=== PATIENT | male | born 1935 | race African-American/Black ===

== ENCOUNTER 2018-11-20 00:24 | Inpatient (IN) | payer OTHER ==
[2018-11-20] VITALS (8 sets, daily range): BP systolic 131–177; BP diastolic 43–87
[~2018-11-20] VITALS: Ht 182.9 cm; Wt 60.1 kg
[~2018-11-20 00:24] MED LIST: ASPIR 8181 MG PO; AVODART0.5 MG PO; CARDIZEM LA300 M1 PO; DILTIAZEM ER300 M1 PO; DOXAZOSIN MESYLA8 MG PO; DUONEB 2.5-0.5 M3 ML INH; EXELON 9.5 MG9.5 MG TD; LEVAQUIN 500 M500 M2 PO; NAMENDA 10 MG T10 MG PO; NAMENDA XR28 MG PO; PROSCAR 5MG TABL5 MG PO; TYLENOL325 MG PO; ZOCOR 10 MG TAB10 MG PO
[2018-11-20 00:51] LABS: ABSOLUTE NEUTROPHILS 16.8 thou/uL (1.4-8.2); BASOPHILS 0.2 % (0.0-2.0); EOSINOPHILS 0.1 % (0.0-3.0); HEMATOCRIT 39.7 % (42.0-52.0); LYMPHOCYTES 7.8 % (24.0-44.0); MCH 30.5 pg (26.0-34.0); MCHC 32.7 g/dL (28.0-37.0); MCV 93.4 fL (80.0-100.0); MONOCYTES 6.2 % (1.0-8.0); PLATELET COUNT 224 thou/uL (150-400); POLYS 85.7 % (36.0-66.0); RBC 4.25 mil/uL (4.50-6.00); RDW 13.7 % (10.5-14.5); WBC 19.6 thou/uL (4.0-11.0)
[2018-11-20 00:54] LABS: BE(vivo) 0.7 mmol/L (-2 to +3); HCO3 24.9 mmol/L (22.0-26.0); PCO2 VENOUS 38.8 mmHg (41.0-51.0); PO2 VENOUS 77.1 mmHg (35.0-45.0)
[2018-11-20 00:56] LABS: CALCIUM 9.4 mg/dL (8.5-10.1); POTASSIUM 3.6 mmol/L (3.5-5.1)
[2018-11-20 01:05] LABS: ALBUMIN 2.9 g/dL (3.4-5.0); MAGNESIUM 2.4 mg/dL (1.8-2.4); TOTAL PROTEIN 7.7 g/dL (6.4-8.2); TROPONIN-I 0.17 ng/mL (<0.06)
--- NOTE | 2018-11-20 01:26 | NUR ---
pt is a code per daughter dpoa
[2018-11-20 01:48] LABS: DIRECT BILIRUBIN 0.9 mg/dL (<0.1-0.3)
[2018-11-20] MEDS ORDERED: FLOMAX0.4 MG PO (03:11)
[2018-11-20] MEDS ORDERED: TYLENOL EXTRA500 MG PO (03:13)
[2018-11-20] MEDS ORDERED: ZANTAC 150MG T150 MG PO (03:14)
[2018-11-20 07:10] LABS: TROPONIN-I 0.19 ng/mL (<0.06)
--- NOTE | 2018-11-20 09:08 | EKG ---
[address] [address] ELECTROCARDIOGRAM REPORT Name: KIRSTY CLARKSUKHI Room #: 351-P ADM IN M.R.#: [id number] Admission: 11/20/18 Attend Phys: Piero Greene MD Discharge: Date of : 33 Report #: [id number] THIS REPORT FOR: //name// [facility] ED Test Date: 2018-11-20 Test Time: 00:42:31 Pat Name: LEON CLARK Department: Room: [facility] Gender: M Catalog Specialist: [id number] : 1935 Requested By: Orion Thomas Order Number: [id number] MD: Jey Myrick Measurements Intervals [place] Rate: 84 P: 66 LA: 156 QRS: -46 QRSD: 73 T: 256 QT: 455 QTc: 538 Interpretive Statements Sinus rhythm Left anterior fascicular block Abnormal R-wave progression, early transition Borderline T abnormalities, diffuse leads Prolonged QT interval Compared to ECG 10/28/2015 17:35:56 Supraventricular tachycardia no longer present Electronically Signed On 11-20-2018 9:08:23 THERMODYNAMICIST by Jey Myrick [email or web address] <ELECTRONICALLY SIGNED> By: Jey Myrick MD, [facility] 11/20/18 0908 004 Jey Myrick MD, [facility] /EPI
[2018-11-20 12:40] LABS: URINE CLARITY CLOUDY; URINE COLOR YELLOW; URINE GLUCOSE-RANDOM* NEGATIVE (Negative); URINE PROTEIN (DIPSTICK) 2+ (Negative)
[2018-11-20 12:41] LABS: URINE BILIRUBIN NEGATIVE (Negative); URINE BLOOD 2+ (Negative); URINE KETONES NEGATIVE (Negative); URINE LEUKOCYTES-REFLEX 2+ (Negative); URINE NITRITE-REFLEX NEGATIVE (Negative)
[2018-11-20 12:46] LABS: BACTERIA-REFLEX >30 Many /HPF (None Seen); CASTS None Seen /LPF (None Seen); CRYSTALS None Seen /LPF (None Seen); SQUAMOUS None Seen /LPF (0-3); URINE RBC 3-10 Few /HPF (0-2); URINE WBC-REFLEX >25 Many /HPF (0-5)
--- NOTE | 2018-11-20 15:32 | NUR ---
ASSESSMENT: CM REVIEWED CHART AND MET WITH PATIENT AT THE BEDSIDE. PT IS ALERT AND UNABLE TO ANSWER QUESTIONS. CM REVIEWED MEDICAL RECORD. PT IS FROM [facility]. CM NOTIFIED LIASON AT [facility] OF PATIENTS ADMISSION AND FAXED UPDATED CLINICAL TO FACILITY. CM DISCUSSED WITH ATTENDING WHO STATES HE FEELS HOSPICE CARE MIGHT BE APPROPRIATE FOR PATIENT AND HE WAS GOING TO REACH OUT TO FAMILY. ATTENDING REPORTS SPEAKING WITH DAUGHTER WHO STATED SHE FEELS THAT THIS NON-VERBAL STATE IS ACUTE AND WOULD LIKE TO SEE HIM TRY TO RECOVER IN THE NEXT DAY OR TWO BEFORE CONSIDERING HOSPICE. VIKKI NOTIFIED LIASON AT [facility]. [facility] IS ABLE TO ACCEPT PATIENT BACK ONCE MEDICALLY STABLE AND IF HE IS ABLE TO DISCHARGE OVER THE WEEKEND CONTACT ANASTASIA AT [facility] AT [phone] AND SHE WILL PROVIDE FAX NUMBER WELL THE NUMBER FOR REPORT. IF DAUGHTER IS AGREEABLE WITH HOSPICE CM NOTIFIED LIASON AT [facility] AND THAT CAN BE ARRANGED AT FACILITY.
--- NOTE | 2018-11-20 20:20 | NUR ---
ASSUMED PT CARE AT 0700H. PT NON VERBAL. PT SLEEPING AT THE TIME. PER PREVIOUS REPORT PT IS FROM FACILITY AND PT HAS NOT BEEING EATING. PT HAD RESIDUE FOUND IN MOUTH. PT BEING CLEANED UP. CONSULTED PHYSICIAN FOR SWALLOW TEST BEFORE ADMINISTERING PO MEDS. SPEECH THERAPY STATED PT IS AT RISK FOR ASPIRATION. CONSULTED PHYSICIAN, PT IS TO BE NPO APART FROM MOUTH CARE. PT UA COLLECTED AND MARCOS LEFT IN PLACE PER PHYSICIAN ORDER. PT HAS SACRAL WOUND. CONSULT WOUND CARE. PT NON AMBULATORY, SCD'S ON, AND Q2 TURN IN PLACE. PT CURRENTLY ON IV ON R WRIST AND ON ABX. PT BEING ABLE TO RESPOND TO FAMILY AT BEDSIDE. PT CONTINUES TO BE MONITORED FOR SAFETY.
[2018-11-21 03:31] VITALS: BP 117/57
[2018-11-21 05:46] LABS: HEMOGLOBIN 11.2 gm/dL (14.0-18.0); MCH 31.1 pg (26.0-34.0); MCHC 32.8 g/dL (28.0-37.0); MCV 94.8 fL (80.0-100.0); RBC 3.59 mil/uL (4.50-6.00); RDW 14.6 % (10.5-14.5); WBC 11.1 thou/uL (4.0-11.0)
[2018-11-21 06:03] LABS: TROPONIN-I 0.44 ng/mL (<0.06)
[2018-11-21 06:07] LABS: ALBUMIN 2.3 g/dL (3.4-5.0); CALCIUM 8.1 mg/dL (8.5-10.1); CREATININE 1.5 mg/dL (0.7-1.3); POTASSIUM 3.3 mmol/L (3.5-5.1); TOTAL BILIRUBIN 2.6 mg/dL (<0.1-1.0); TOTAL PROTEIN 6.6 g/dL (6.4-8.2)
--- NOTE | 2018-11-21 07:44 | NUR ---
ASSUMED CARE AT 1900, ASSESSMENT COMPLETED. PT NONVERBAL, VERY STIFF WITH CARES AND TURNS, BECOMING MORE RIGID/TREMORING WITH ANY STIMULATION. NO SIGNS OF RESP DISTRESS, NO NAUSEA, NO STOOL OUTPUT OVERNIGHT. MAINTAINED STRICT NPO, GAVE ORAL CARE, Q2 TURNS. BP ELEVATED OVERNIGHT, OBTAINED ORDER TO START IV METOPROLOL SINCE PT CANNOT TAKE PO BP MEDS. LITTLE CHANGE IN BP AFTER GIVING MED, PT NOTED TO BE GROANING AND HAVING TREMORS, GAVE DOSE OF FENTANY; THIS HELPED RELAX PT AND HAD SIGNIFICANT CHANGE IN BP. GOOD MARCOS OUTPUT, 1000 ML OVERNIGHT DARK FER WITH LARGE AMOUNTS OF SEDIMENT. SR WITH HR 60-70 ON TELE. IV PULLED OUT DURING A TURN, NEW IV RESTARTED IN RIGHT FOREARM. AM LABS RESULTED A CRITICAL SODIUM, OBTAINED ORDERS TO CHANGE FLUIDS FROM NS TO D5. NO OTHER CONCERNS, SHIFT REPORT GIVEN AT 0700.
[2018-11-21 08:52] VITALS: BP 145/80
--- NOTE | 2018-11-21 12:58 | NUR ---
NONVERBAL. SOMNOLENT. MULTIPLE CONTACTS WITH FAMILY MEMBERS. FREQUENT CHECKS. CLOSE TO NURSES' STATION. FALL PRECAUTIONS IN PLACE. LABS, VS REVIEWED. SR PER TELE. WILL CONTINUE TO MONITOR.
[2018-11-21 16:37] VITALS: BP 138/71
[2018-11-21 19:59] VITALS: BP 145/69
--- NOTE | 2018-11-22 03:05 | NUR ---
PATIENT ASSESSED. IS ALERT X 1 SELF. IS NON-VERBAL SINCE ADMISSION. IS TURNED Q 2 HOURS. MARCOS INTACT WITH FER URINE. IS NPO. TELE- SHOWS NSR. DENIES ANY PAIN OR SOA. IV SITE HEALTHY. NO WOUNDS NOTED. LUNGS CTA-DISM. BEEN RUNNING A TEMP. WAS 101.3 ON SHIFT CHANGE AND RECHECKED AND WAS ABOUT THE SAME. TYLENOL SUPP GIVEN WITH GOOD RESULTS. DID COME DOWN TO 98.6 AX. TURNED Q 2 HOURS IS INCONT OF STOOL. ONLY HAD A SMALL STOOL. IS ON BEDREST. ON ROOM AIR. IV FLUIDS INFUSING WELL AT 125 CC.HOUR. CONT PLAN OF CARE.
[2018-11-22 04:37] VITALS: BP 164/84
[2018-11-22 05:34] LABS: ABSOLUTE NEUTROPHILS 8.4 thou/uL (1.4-8.2); BASOPHILS 0.5 % (0.0-2.0); EOSINOPHILS 2.2 % (0.0-3.0); HEMATOCRIT 34.5 % (42.0-52.0); HEMOGLOBIN 11.1 gm/dL (14.0-18.0); LYMPHOCYTES 20.7 % (24.0-44.0); MCH 30.9 pg (26.0-34.0); MCHC 32.2 g/dL (28.0-37.0); MCV 95.9 fL (80.0-100.0); MONOCYTES 10.3 % (1.0-8.0); PLATELET COUNT 163 thou/uL (150-400); POLYS 66.3 % (36.0-66.0); RDW 14.3 % (10.5-14.5); WBC 12.7 thou/uL (4.0-11.0)
[2018-11-22 07:17] VITALS: BP 153/80
[2018-11-22 11:10] VITALS: BP 132/62
[2018-11-22 16:40] VITALS: BP 154/79
--- NOTE | 2018-11-22 18:37 | NUR ---
ASSUMED PATIENT CARE AT 0700. NO CHANGE, Q2H TURN, NONE VERBLE.BLOOD TINGE URINE DUO TO PATIENT TRY TO PULL OUT MARCOS. NOT TOWARDS POC GOALS.
[2018-11-22 20:06] VITALS: BP 139/89
--- NOTE | 2018-11-23 02:15 | NUR ---
Assumed care of pt at 1900. Pt nonverbal and has dementia. Q2h turn. IVF and antibiotics infusing. Painter catheter in place. Fall precautions in place. WIll continue to monitor.
[2018-11-23 05:10] VITALS: BP 154/88
[2018-11-23 05:29] LABS: ABSOLUTE NEUTROPHILS 6.8 thou/uL (1.4-8.2); BASOPHILS 0.5 % (0.0-2.0); EOSINOPHILS 2.4 % (0.0-3.0); HEMATOCRIT 31.9 % (42.0-52.0); HEMOGLOBIN 10.7 gm/dL (14.0-18.0); LYMPHOCYTES 23.2 % (24.0-44.0); MCH 31.1 pg (26.0-34.0); MCHC 33.7 g/dL (28.0-37.0); MCV 92.4 fL (80.0-100.0); MONOCYTES 8.8 % (1.0-8.0); PLATELET COUNT 148 thou/uL (150-400); POLYS 65.1 % (36.0-66.0); RBC 3.45 mil/uL (4.50-6.00); RDW 13.7 % (10.5-14.5); WBC 10.5 thou/uL (4.0-11.0)
[2018-11-23 05:51] LABS: CALCIUM 7.7 mg/dL (8.5-10.1); CREATININE 1.3 mg/dL (0.7-1.3); MAGNESIUM 1.8 mg/dL (1.8-2.4); TOTAL BILIRUBIN 2.8 mg/dL (<0.1-1.0); TOTAL PROTEIN 6.2 g/dL (6.4-8.2)
[2018-11-23 05:55] LABS: POTASSIUM 2.7 mmol/L (3.5-5.1)
[2018-11-23 07:41] VITALS: BP 168/94; BP 169/102
[2018-11-23] MEDS ORDERED: CATAPRES-TTS 20.2 MG TRANSDERM (12:08)
--- NOTE | 2018-11-23 13:30 | NUR ---
PT UNRESPONSIVE AGAIN TODAY FOR OT EVALUATION. PHONE CALL TO DR. CORONADO WHO AGREED TO DISCONTINUE O.T. ORDERS DUE TO PT CONSISTENTLY NOT BEING ABLE TO PARTICIPATE IN O.T. EVALUATION DUE TO NON-RESPONSIVENESS.
--- NOTE | 2018-11-23 14:03 | NUR ---
PATIENT DC TODAY TO [facility], DP SENT TO ANASTASIA AT [facility] TODAY AT 3PM. FAMILY NOTIFIED, UNIT NOTIFIED, AMBULANCE FORM GIVEN TO UNIT FOR FRONT OF CHART COPY AND FOR CHART. DP SENT TO OUTREACH PROFESSIONAL FOR CC.
[2018-11-23 14:26] VITALS: BP 168/94
--- NOTE | 2018-11-23 14:47 | NUR ---
WOUND CONSULT: PT. WAS SEEN ON 11/20/[address] GARCIA AND MYSELF. PT. HAS A STABLE STAGE 2 PRESSURE ULCER TO HIS SACRUM. THERE ARE NO SIGNS OR SYMPTOMS OF INFECTION NOTED AT THIS TIME. RECOMMENDATIONS: WOUND CARE TO SACRUM: GENTLY CLEANSE AREA WITH WOUND CLEANSER OR NORMAL SALINE, APPLY MOISTURE BARRIER CREAM, LEAVE OPEN TO AIR, COMPLETE CARES DAILY AND PRN. TURN Q2 HOURS KEEP PT. OFF WOUNDS MUCH POSSIBLE PT. AND STAFF NURSE WERE INSTRUCTED ON PLAN OF CARE.
--- NOTE | 2018-11-23 15:19 | NUR ---
ASSUMED PT CARE AT 12:00. PT ARRIVED ON UNIT FROM 3W, WITH NO ISSUES OR CONCERNS. PT NONVERBAL FOR THE MOST PART WILL RESPOND BUT NOT APPROPRIATELY. PT D/C TO [facility]. ATTEMPTED TO CALL 2X WITH NO CONNECTION TO CORRECT NURSE FOR REPORT.
--- NOTE | 2018-11-23 16:08 | HC ---
[facility] [place] [address] CONSULTATION Name: LEON CLARK Room #: 455-P [facility] IN M.R.#: [id number] Admission: 11/20/18 Attend Phys: Piero Greene MD Discharge: 11/23/18 Date of : 34 Report #: [id number] THIS REPORT FOR: //name// CC: Johnna Greene DATE OF SERVICE: 11/20/2018 CHIEF COMPLAINT: Sacral pressure ulceration. HISTORY OF PRESENT ILLNESS: This is an 83-year-old male patient who was admitted to the hospital with hypernatremia and dehydration. He has had apparently low grade fever and diminished mental status. He is noted to have a sacral ulcer and I have been asked to see him in this regard. He is not able to answer any questions about himself at this time. PAST MEDICAL HISTORY: Positive for dementia, hypertension, hyperlipidemia and dysphagia. FAMILY HISTORY: Noncontributory. SOCIAL HISTORY: Unknown. ALLERGIES: None. MEDICATIONS: Include tamsulosin, Tylenol, Zantac, aspirin, DuoNeb, Levaquin, diltiazem, Zocor, doxazosin, Exelon, Proscar, Namenda. REVIEW OF SYSTEMS: Unobtainable due to acute mental status changes. PHYSICAL EXAMINATION: VITAL SIGNS: At this time include pulse 84, respiratory rate of 20, blood pressure 167/63, temperature 100.0. GENERAL: This is a chronically ill-appearing male patient who appears to be in no distress and has not been able to answer questions, briefly opens his eyes. HEENT: Head is normocephalic. NECK: Supple. LUNGS: Diminished. HEART: Regular rhythm. ABDOMEN: Soft. There is no tenderness noted. SKIN: Sacral region demonstrates what appears to be a very small stage 2 pressure ulceration of the sacral region with no tunneling, undermining or exposure of deep structures. EXTREMITIES: Lower extremities demonstrate no breakdown. NEUROLOGIC: The patient appears to be moving symmetrically. He is not oriented or able to answer questions. [address] [address] CONSULTATION Name: [facility] Room #: [address] [place] [address] IN M.R.#: [id number] Admission: 11/20/18 Attend Phys: Piero Greene MD Discharge: 11/23/18 Date of : 34 Report #: [id number] LABORATORY DATA: Sodium 165, potassium 3.6, chloride 128, CO2 of 27, BUN 59, creatinine 2.0, glucose 121. Albumin is 2.9. White blood cell count 19.6 with a hemoglobin of 13.0. CLINICAL IMPRESSION: 1. Stage 2 sacral pressure ulceration. 2. Acute mental status change. 3. Hypernatremia, likely secondary to dehydration. RECOMMENDATIONS: At this point in time, the patient will be placed on low air loss mattress. He will need q. 2 hour turning the position. Recommend zinc oxide based moisture barrier cream to the sacral region twice daily and as needed. He will need Prevalon boots for pressure prophylaxis of both heels. Recommend aggressive nutritional support and continue current medications. <ELECTRONICALLY SIGNED> By: Brendan Obrien MD 11/23/18 1608 1652 0527 Brendan Obrien MD /nt
== END 2018-11-23 15:19 | DRG 871 ==
LOC: ER 00:24 → 3W 01:25 → EROBS 01:25 → 3W 02:40 → 4W 11-23 12:20
PROVIDERS: Emergency Medicine; Nurse Practitioner Acute Care; ADMIT Internal Medicine
DX: A41.9 Sepsis, unspecified organism (principal); G92 Toxic encephalopathy; E43 Unspecified severe protein-calorie malnutrition; N17.9 Acute kidney failure, unspecified; E87.0 Hyperosmolality and hypernatremia; N39.0 Urinary tract infection, site not specified; Z68.1 Body mass index [BMI] 19.9 or less, adult; F03.90 Unspecified dementia, unspecified severity, without behavioral disturbance, psychotic disturbance, mood disturbance, and anxiety; I10 Essential (primary) hypertension; E78.5 Hyperlipidemia, unspecified; E86.0 Dehydration; L89.152 Pressure ulcer of sacral region, stage 2; N40.0 Benign prostatic hyperplasia without lower urinary tract symptoms; R13.10 Dysphagia, unspecified; Z66 Do not resuscitate; Z79.82 Long term (current) use of aspirin; Z79.899 Other long term (current) drug therapy; Z28.89 Immunization not carried out for other reason
CPT/HCPCS: 10879

== ENCOUNTER 2018-12-03 14:40 | Inpatient (IN) | payer OTHER ==
[~2018-12-03] VITALS: Ht 182.9 cm; Wt 59.9 kg
[~2018-12-03 14:40] MED LIST changes: +CATAPRES-TTS 20.2 MG TRANSDERM; +FLOMAX0.4 MG PO; +TYLENOL EXTRA500 MG PO; +ZANTAC 150MG T150 MG PO
[2018-12-03 16:31] VITALS: BP 161/65
--- NOTE | 2018-12-03 17:24 | NUR ---
PATIENT ARRIVED DIRECT ADMIT FROM [facility]. ALERT, NON VERBAL, PER FAMILY/[facility] RN PT HAS HX OF DEMENTIA. 2/2PULSES,, MARCOS FOR RETENTION, BM TODAY, LIFT DEVICE/SLIDE FOR TRANSFERS. ARRIVED WITH IV IN LEFT FORARM. WOUND COCCCYX. CONSENTS SIGNED. PER FAMILY PT IS HERE FOR A GTUBE PLACEMENT. ADDMISSION HISTORY AND ASSESMENT COMPLETED. FALL PRECAUTIONS IN PLACE. STAFF TO ANTICIPATE PT'S NEEDS, CANNOT DEMONSTRATE CALL LIGHT USE. RN FROM [facility] STATED PT ON PUREED DIET THICKENED LIQUIDS HOWEVER HIS INTAKE IS POOR. PHYSICAN NOTIFIED OF PT ARRIVAL.
[2018-12-03] MEDS ORDERED: MELATONIN1 MG PO (17:26)
[2018-12-03 18:24] LABS: HEMATOCRIT 35.2 % (42.0-52.0); HEMOGLOBIN 11.1 gm/dL (14.0-18.0); MCH 30.1 pg (26.0-34.0); MCHC 31.5 g/dL (28.0-37.0); MCV 95.8 fL (80.0-100.0); RBC 3.68 mil/uL (4.50-6.00); RDW 14.4 % (10.5-14.5); WBC 14.2 thou/uL (4.0-11.0)
[2018-12-03 18:33] LABS: CALCIUM 8.6 mg/dL (8.5-10.1); CREATININE 1.3 mg/dL (0.7-1.3); POTASSIUM 3.6 mmol/L (3.5-5.1)
[2018-12-03 18:38] LABS: APTT 27.1 Seconds (24.5-32.8); INR 1.2; PROTIME 12.6 Seconds (9.3-11.4)
[2018-12-03 18:39] LABS: ALBUMIN 2.2 g/dL (3.4-5.0); TOTAL BILIRUBIN 1.3 mg/dL (<0.1-1.0); TOTAL PROTEIN 7.5 g/dL (6.4-8.2)
[2018-12-03 19:35] VITALS: BP 155/70
[2018-12-04 03:29] VITALS: BP 161/49
[2018-12-04 07:58] LABS: URINE BILIRUBIN NEGATIVE (Negative); URINE BLOOD NEGATIVE (Negative); URINE CLARITY CLEAR; URINE COLOR YELLOW; URINE GLUCOSE-RANDOM* NEGATIVE (Negative); URINE KETONES 1+ (Negative); URINE LEUKOCYTES NEGATIVE (Negative); URINE NITRITE NEGATIVE (Negative); URINE PROTEIN (DIPSTICK) TRACE (Negative); URINE SPECIFIC GRAVITY >= 1.030 (1.005-1.035); URINE UROBILINOGEN 0.2 E.U./dl (0.2-1.0)
[2018-12-04 08:00] VITALS: BP 135/56
[2018-12-04 08:57] LABS: CALCIUM 8.7 mg/dL (8.5-10.1); CREATININE 1.2 mg/dL (0.7-1.3); POTASSIUM 3.8 mmol/L (3.5-5.1)
--- NOTE | 2018-12-04 12:01 | NUR ---
PT ADMITTED RELATED TO HYPERNATREMIA. CM REVIEWED CHART AND SPOKE WITH CARE TEAM. CM MET WITH PT AT BESIDE THIS DAY. PT'S SISTER'S WERE AT THE BEDSIDE. PT UNABLE TO COMPLETE ASSEMENT DUE TO ADVANCED DEMENTIA. THEY INDICATED THAT PT RESIDES AT [facility] AND THAT THEY ANTICPATE PT RETURNING THERE UPON DISHARGE. 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 CLINICALS SENT TO THE FACILITY. CM SPOKE WITH ANASTASIA AT THE FACILITY AND THEY ARE ABLE TO ACCEPT PT BACK ONCE MEDICALLY STABLE. PHYSICIAN INDICATED THAT PT WILL LIKELY REMAIN HOSPITALIZED OVER THE WEEKEND. CM TO FOLLOW INDICATED WITH DC PLANNING.
--- NOTE | 2018-12-04 12:44 | NUR ---
ORDER REC'D FOR OT. CAREGIVER IN ROOM AND STATES THAT PATIENT IS TOTAL CARE FOR ADLS AND FUNCTIONAL MOBILITY. PATIENT DID NOT RESPOND TO INSTRUCTIONS AND WILL BE DISCHARGED FROM SKILLED OT THERE ARE NO APPROPRIATE GOALS AT THIS TIME.
[2018-12-04 15:00] VITALS: BP 142/67
--- NOTE | 2018-12-04 19:39 | NUR ---
PATIENT ADMITTED FOR PLACEMENT OF PEG TUBE. PATIENT IS NONVERBAL. OPENS EYES AT TIMES, HOWEVER MOSTLY SLEEPS. TURNED Q2H. PEG TUBE PLACED THIS AFTERNOON. RETURNED TO FLOOR AT 1515. ABD DRESSING OVER PEG TUBE AND C/D/I. IVF'S STARTED ORDERED. ORAL CARE GIVEN. FALL PRECAUTIONS IN PLACE.
[2018-12-04 19:48] VITALS: BP 149/64
[2018-12-05 04:34] VITALS: BP 154/62
[2018-12-05 05:39] LABS: CALCIUM 8.2 mg/dL (8.5-10.1); CREATININE 1.1 mg/dL (0.7-1.3); POTASSIUM 3.2 mmol/L (3.5-5.1)
--- NOTE | 2018-12-05 05:49 | NUR ---
Alert, kept eyes closed and opened eyes to voice talk, unresponsive; vss, afebrile; PEG tube dressing dry and intact, no sign of pain; no n/v. will keep monitoring.
[2018-12-05 08:44] VITALS: BP 160/77
[2018-12-05 13:18] VITALS: BP 150/69
--- NOTE | 2018-12-05 14:57 | NUR ---
ASSUMED CARE AT 0700. ALERT AND AWAKE. NONVERBAL. PEG WAS EVAL BY AND TF AND MED RESTARTED THRU PEG, IVF D/C PER PT RECEIVING HYDRATION AND NUTIRITION THRU PEG. BEDSIDE EVAL RENDERED PER ST. PT IS STILL NPO. WOUND CARE RENDERED TO SACRAL WOUND. NO S/S ACUTE DISTRESS NOTED OR REPORTED AT THIS TIME. POTASSIUM WAS REPLACED PER PEG TUBE. WILL CONT TO MONITOR FOR ANY CHANGES IN CONDITION.
[2018-12-05 23:07] VITALS: BP 137/53
--- NOTE | 2018-12-05 23:47 | NUR ---
Pt. transfered to [address] [place] [address] supervisors direction. Pt. has been resting quietly in bed and is non-verbal. He has been turned and repositioned. Oral mouth care given. Tube feeding infusing without difficulty. Report given to Jamil AYALA.
--- NOTE | 2018-12-06 03:16 | NUR ---
Pt transferred from 4W approx 0000. Pt is nonverbal. Q2h turn. Continuous tube feeding through PEG tube. Meds administered through peg tube. visitor services coordinator consult ordered for sacral pressure wound. Fall precautions in place. Will continue to monitor.
[2018-12-06 04:30] VITALS: BP 123/67
[2018-12-06 05:55] LABS: ABSOLUTE NEUTROPHILS 7.5 thou/uL (1.4-8.2); BASOPHILS 0.6 % (0.0-2.0); EOSINOPHILS 1.3 % (0.0-3.0); HEMATOCRIT 33.2 % (42.0-52.0); HEMOGLOBIN 10.9 gm/dL (14.0-18.0); LYMPHOCYTES 18.4 % (24.0-44.0); MCH 29.7 pg (26.0-34.0); MCHC 32.8 g/dL (28.0-37.0); MONOCYTES 6.7 % (1.0-8.0); PLATELET COUNT 300 thou/uL (150-400); RBC 3.67 mil/uL (4.50-6.00); RDW 13.8 % (10.5-14.5); WBC 10.3 thou/uL (4.0-11.0)
[2018-12-06 06:02] LABS: MCV 90.7 fL (80.0-100.0)
[2018-12-06 06:05] LABS: CALCIUM 8.6 mg/dL (8.5-10.1); CREATININE 1.1 mg/dL (0.7-1.3); POTASSIUM 3.9 mmol/L (3.5-5.1)
--- NOTE | 2018-12-06 18:07 | NUR ---
AT 1700 MARCOS CATH CHANGED 16 FR WITH DARK YELLOW URINE RETURN . MINIMAL DISCOMFORT TO PATIENT. DRSG CHANGED TO SACRAL AREA. TUBE FEEDING INFUSING ORDERED.
[2018-12-06 20:20] VITALS: BP 137/52
--- NOTE | 2018-12-07 03:04 | NUR ---
Assumed care of pt at 1900. Q2h turn. Continuous tube feedings. Dressing on sacral wound clean and intact. Pt nonverbal. Painter catheter in place. Light and TV on in room per pt family request. Fall precautions in place. Will continue to monitor.
[2018-12-07 05:47] VITALS: BP 104/4
[2018-12-07 07:29] VITALS: BP 131/51
[2018-12-07 08:26] LABS: CALCIUM 8.4 mg/dL (8.5-10.1); CREATININE 1.2 mg/dL (0.7-1.3); POTASSIUM 3.9 mmol/L (3.5-5.1)
[2018-12-07] MEDS ORDERED: TYLENOL EXTRA500 MG PER TUBE (08:55)
[2018-12-07] MEDS ORDERED: PROSCAR 5MG TABL5 MG PER TUBE (08:55)
[2018-12-07] MEDS ORDERED: PEPCID20 MG PER TUBE (08:55)
[2018-12-07] MEDS ORDERED: ASPIR 8181 MG PER TUBE (08:55)
[2018-12-07] MEDS ORDERED: FLOMAX0.4 MG PER TUBE (08:55)
--- NOTE | 2018-12-07 10:32 | NUR ---
PT. DISCHARGING TODAY BACK TO [facility]. FAXED DC ORDERS/SUMMARY TO FACILITYJ SPOKE WITH ANASTASIA IN ADM SHE RECEIVED DC ORDERS. DC SET UP TRANSPORTATION VIA STRETCHER WITH [facility] TRIP #[id number] THEY WILL CHECKMAN PT. ANYWHERE BETWEEN NOW AND 1330. NOTIFIED DTR ( HILARY) OF DISCHARGE AND TIME OF TRANSPORT. UNIT NOTIFIED AND CHART COPY PER US. RN TO CALL REPORT TO [phone].
--- NOTE | 2018-12-07 11:54 | NUR ---
PT TRANSPORTED BACK TO [facility] BY CART AND FD, IV IN L HAND AND R FA REMOVED. REPORT CALLED TO LON AYALA. PEG TUBE STOPPED AND FLUSHED WITH 30ML WATER.
--- NOTE | 2018-12-11 10:09 | P ---
[facility] [place] [address] PROCEDURE REPORT Name: KIRSTY CLARKSUKHI Room #: 421-P [facility] IN M.R.#: [id number] Admission: 12/03/18 Attend Phys: Piero Greene MD Discharge: 12/07/18 Date of : 34 Report #: [id number] THIS REPORT FOR: //name// CC: Johnna Ruba Greene MD DATE OF SERVICE: 12/04/2018 PROCEDURE PERFORMED: Upper endoscopy with PEG tube placement. HISTORY OF PRESENT ILLNESS: The patient is an 83-year-old male with mental status changes, dysphagia, weight loss and unable to eat. Plan is for a PEG tube placement. PROCEDURE: The risks and benefits of the procedure were explained to the patient's daughters as the risks including but not limited to bleeding, perforation, the risk of sedation as well as potential risk for infection. They understood these risks and gave informed consent. Sedation was given using propofol per anesthesia. The patient was given 1 gram of Ancef prior to the procedure. Next, using a standard Olympus upper endoscope, the scope was placed in the patient's mouth and advanced under direct vision through the esophagus, stomach and into the second portion of the duodenum. The esophagus was normal throughout. The GE junction was normal. No evidence of stricture or esophagitis. Overall, the gastric mucosa was normal. The pylorus was normal and patent. The duodenal bulb, first and second portion were all normal. The scope was then brought back up into the patient's stomach and the stomach was fully insufflated with air. Good transillumination was noted through the anterior abdominal wall. This area was then marked and the skin was cleaned with chlorhexidine solution and a sterile drape was put in place. Next, Xylocaine was used as a local anesthetic. Next, a seeker needle was then advanced through the anterior abdominal wall into the gastric lumen under direct vision without difficulty. The needle was then removed. Next, a 1 cm transverse incision was made through the skin. Next, using a catheter needle, the needle was advanced through the mid portion of the incision again into the gastric lumen under direct vision. The needle was removed leaving the catheter in place. Next, a blue guidewire was inserted through the catheter. This was grasped with a snare through the endoscope and then brought back up through the patient's mouth. A 20-Setswana PEG tube was then secured to the blue guidewire and using a pull technique was put into position without difficulty. The scope was reintroduced into the patient's stomach. The PEG tube bumper was noted to be in good position in the mid body. The scope was then withdrawn. The PEG tube was then secured to the anterior abdominal wall. The procedure was then terminated. The patient tolerated the procedure well. [facility] [address] [place] [address] PROCEDURE REPORT Name: CLARK,NORSUKHI Room #: 421-P DIS IN M.R.#: [id number] Admission: 12/03/18 Attend Phys: Piero Greene MD Discharge: 12/07/18 Date of : 34 Report #: [id number] IMPRESSION: 1. Normal upper endoscopy. 2. Successful placement of PEG tube as described above. RECOMMENDATIONS: Okay to start using PEG tube later this evening. Thank you for allowing me to participate in his care. <ELECTRONICALLY SIGNED> By: Anish Kelly MD 12/11/18 1009 [id number] [id number] Anish Kelly MD /nt
== END 2018-12-07 11:43 | DRG 70 ==
LOC: 4W 14:40 → 4E 17:46
PROVIDERS: Hospitalist; ADMIT Internal Medicine
PROC: 0DH63UZ Insertion of Feeding Device into Stomach, Percutaneous Approach (ICD-10-PCS; principal; 2018-12-04)
DX: G93.40 Encephalopathy, unspecified (principal); E43 Unspecified severe protein-calorie malnutrition; N39.0 Urinary tract infection, site not specified; Z68.1 Body mass index [BMI] 19.9 or less, adult; E87.0 Hyperosmolality and hypernatremia; E86.0 Dehydration; R13.10 Dysphagia, unspecified; N40.0 Benign prostatic hyperplasia without lower urinary tract symptoms; G30.9 Alzheimer's disease, unspecified; E87.6 Hypokalemia; F02.80 Dementia in other diseases classified elsewhere, unspecified severity, without behavioral disturbance, psychotic disturbance, mood disturbance, and anxiety; R91.1 Solitary pulmonary nodule; E78.5 Hyperlipidemia, unspecified; I10 Essential (primary) hypertension; Z87.440 Personal history of urinary (tract) infections; Z87.01 Personal history of pneumonia (recurrent)
CPT/HCPCS: 10047; 10783; 62110; 62900; 70005

== ENCOUNTER 2018-12-09 08:01 | Inpatient (IN) | payer OTHER ==
[2018-12-09] VITALS (31 sets, daily range): BP systolic 91–153; BP diastolic 33–106
[~2018-12-09] VITALS: Ht 182.9 cm; Wt 98.5 kg
[~2018-12-09 08:01] MED LIST changes: +ASPIR 8181 MG PER TUBE; +FLOMAX0.4 MG PER TUBE; +MELATONIN1 MG PO; +PEPCID20 MG PER TUBE; +PROSCAR 5MG TABL5 MG PER TUBE; +TYLENOL EXTRA500 MG PER TUBE
[2018-12-09 08:17] LABS: BE(vivo) -3.8 mmol/L (-2 to +3); HCO3 17.5 mmol/L (22.0-26.0); PO2 67.3 mmHg (80.0-100.0); sO2 95.2 % (92.0-98.0)
[2018-12-09 09:04] LABS: HEMATOCRIT 38.7 % (42.0-52.0); HEMOGLOBIN 12.1 gm/dL (14.0-18.0); MCHC 31.2 g/dL (28.0-37.0); MCV 92.8 fL (80.0-100.0); PLATELET COUNT 344 thou/uL (150-400); RBC 4.17 mil/uL (4.50-6.00); RDW 14.3 % (10.5-14.5); WBC 14.1 thou/uL (4.0-11.0)
[2018-12-09 09:23] LABS: CALCIUM 8.8 mg/dL (8.5-10.1); POTASSIUM 4.9 mmol/L (3.5-5.1)
[2018-12-09 09:33] LABS: ABSOLUTE NEUTROPHILS 11.6 thou/uL (1.4-8.2); LARGE PLATELETS FEW; METAMYELOCYTES 3 %; PLATELET ESTIMATE NORMAL
[2018-12-09 10:33] LABS: URINE BLOOD 3+ (Negative); URINE CLARITY CLEAR; URINE COLOR YELLOW; URINE GLUCOSE-RANDOM* NEGATIVE (Negative); URINE KETONES TRACE (Negative); URINE NITRITE-REFLEX NEGATIVE (Negative); URINE PROTEIN (DIPSTICK) 1+ (Negative); URINE SPECIFIC GRAVITY 1.025 (1.005-1.035)
[2018-12-09 10:47] LABS: URINE LEUKOCYTES-REFLEX 1+ (Negative)
[2018-12-09 10:48] LABS: ICTOTEST (BILI CONFIRMATORY) Negative (Negative); URINE BILIRUBIN NEGATIVE (Negative)
[2018-12-09 11:44] LABS: BACTERIA-REFLEX >30 Many /HPF (None Seen); CASTS None Seen /LPF (None Seen); CRYSTALS None Seen /LPF (None Seen); SQUAMOUS None Seen /LPF (0-3); URINE RBC 3-10 Few /HPF (0-2); URINE WBC-REFLEX >25 Many /HPF (0-5)
[2018-12-09 11:46] LABS: YEAST-REFLEX Present (None Seen)
--- NOTE | 2018-12-09 12:42 | EKG ---
[address] [address] ELECTROCARDIOGRAM REPORT Name: LEON CLARK Room #: 170-8 ADM IN M.R.#: [id number] ������������������ Admission: 12/09/18 ������������������ Attend Phys: Joey Chen MD Discharge: ������������������ Date of : 34 Report #: [id number] ����������������������������������������������������������������� [id number] THIS REPORT FOR: //name// [facility] ED Test Date: 2018-12-09 Test Time: 08:16:40 Pat Name: LEON CLARK Department: Room: 170 Gender: M Barrel Charrer: SHAMAR : 1935 Requested By: Dk Bashir Order Number: [id number] MD: Vasiliy Burks Measurements Intervals [place] Rate: 126 P: -67 IN: 108 QRS: -37 QRSD: 64 T: 61 QT: 418 QTc: 606 Interpretive Statements Sinus or ectopic atrial tachycardia Left atrial enlargement Left axis deviation Abnormal R-wave progression, early transition Prolonged QT interval Compared to ECG 11/20/2018 00:42:31 Electronically Signed On 12-09-2018 12:42:33 HAIR SPECIALIST by Vasiliy Burks [email or web address] ��������������������������������������������� <ELECTRONICALLY SIGNED> ���������������������������������������� By: Vasiliy Burks MD ��������������������������������������������� 12/09/18 1242 5 5 Vasiliy Burks MD /EPI
--- NOTE | 2018-12-09 15:08 | NUR ---
VASCULAR ACCESS TEAM CONSULTED FOR PICC PLACEMENT. PT'S LABS,MEDS,HISTORY,ORDER AND CONSENT VERIFIED. PT WAS PREPPED AND DRAPED FOR MAX BARRIER PRECAUTIONS. THANG BASILIC WAS WIDELY PATENT WITH USG, 1% LIDOCAINE GIVEN SQ. 5FR TL POWER PICC TRIMMED TO 45CM INSERTED TO 1CM EXTERNAL. PICC SECURED STAT CXR OBTAINED.
--- NOTE | 2018-12-09 15:10 | NUR ---
CXR CONFIRMED PICC PLACEMENT NEAR CAJ, PICC RELEASED FOR IMMEDIATE USE PER PROTOCOL TO LIZ AYALA
[2018-12-09 15:17] LABS: BE(vivo) -6.1 mmol/L (-2 to +3); HCO3 17.4 mmol/L (22.0-26.0); PCO2 28.3 mmHg (35.0-45.0); PO2 101.2 mmHg (80.0-100.0); pH 7.407 (7.360-7.450); sO2 97.8 % (92.0-98.0)
[2018-12-09 17:37] LABS: CREATININE 1.7 mg/dL (0.7-1.3); MAGNESIUM 1.9 mg/dL (1.8-2.4); POTASSIUM 4.5 mmol/L (3.5-5.1)
[2018-12-09 18:03] LABS: BE(vivo) -4.6 mmol/L (-2 to +3); HCO3 18.8 mmol/L (22.0-26.0); PCO2 29.7 mmHg (35.0-45.0); PO2 390.3 mmHg (80.0-100.0); sO2 99.8 % (92.0-98.0)
--- NOTE | 2018-12-09 21:17 | NUR ---
PT ADMITTED TO ICU FROM ED FOR ASPIRATION PNEUMONIA. CONSULTS PLACED FOR DR. TOLLIVER (ID) AND DR. TODD (PULMONARY). PLACED ON MONITOR. TACHYCARDIC. BLOOD PRESSURES ADEQUATE. TACHYPENIC. ORDERS TO HAVE ABG'S DRAWN AND PLACE ON BIPAP. PT TOLERATING BIPAP WELL. TRIPLE LUMEN PICC PLACED. IV FLUIDS AND ABX INFUSING. ORDERS TO CALL DR. TODD IF PATIENT BECOMES HYPOTENSIVE. NOTED MINIMAL URINE OUTPUT. FLUSHED CATHETER, ONETIME DOSE OF LASIX GIVEN AND INCREASED FLUIDS TO 125 ML/HR. NOTED INCREASED OUTPUT, SEE I/O. MRSA SWAB SENT. SACRAL WOUOND, PICTURE IN PT CHART. CONSULT FOR WOUND CARE NURSE. MEPILEX DRESSING PLACED.
[2018-12-10] VITALS (53 sets, daily range): BP systolic 88–150; BP diastolic 29–117
--- NOTE | 2018-12-10 05:04 | NUR ---
PATIENT IS PROGRESSING SLOWLY IN HIS CARE PLAN. VITAL SIGNS STABLE WITH NURSE NOT PERCEIVING ANY PAIN OR NAUSEA ON BEHALF OF PATIENT. HE IS LETHARGIC AND HAD HISTORY OF DEMENTIA AND BEING NON VERBAL AT BASELINE. BREATHING STABLE ON BIPAP EVIDENCED BY CONTINUOUS MONITORING. URINARY OUTPUT AND BLOOD PRESSURE ABOVE PARAMETERS SET FORTH BY DR TODD FOR CALL AND POSSIBLE INTUBATION. PATIENT WAS REPOSITIONED WITH SKIN CARE PROVIDED. CONTINUE PLAN OF CARE.
[2018-12-10 05:18] LABS: BE(vivo) -4.3 mmol/L (-2 to +3); HCO3 19.4 mmol/L (22.0-26.0); PCO2 30.7 mmHg (35.0-45.0); PO2 181.1 mmHg (80.0-100.0); pH 7.418 (7.360-7.450); sO2 99.3 % (92.0-98.0)
[2018-12-10 06:34] LABS: HEMATOCRIT 28.7 % (42.0-52.0); MCH 29.8 pg (26.0-34.0); MCHC 32.4 g/dL (28.0-37.0); MCV 91.8 fL (80.0-100.0); RBC 3.13 mil/uL (4.50-6.00); RDW 14.7 % (10.5-14.5); WBC 21.1 thou/uL (4.0-11.0)
[2018-12-10 06:36] LABS: HEMOGLOBIN 9.3 gm/dL (14.0-18.0)
[2018-12-10 06:42] LABS: CALCIUM 8.3 mg/dL (8.5-10.1); CREATININE 1.4 mg/dL (0.7-1.3); POTASSIUM 4.1 mmol/L (3.5-5.1)
[2018-12-10 08:31] LABS: METAMYELOCYTES 3 %
[2018-12-10 08:33] LABS: ANISOCYTOSIS 1+; PLATELET COUNT 246 thou/uL (150-400)
--- NOTE | 2018-12-10 09:45 | NUR ---
When PEG feedings ready to begin, recommend Jevity 1.5 to reach goal of 55ml/hr.
--- NOTE | 2018-12-10 14:41 | NUR ---
INITIAL ASSESSMENT: Pt evaluated for d/c planning needs. Reviewed chart and spoke with nurse and pt's son at bedside. Pt was hospitalized at [facility] recently and returned to [facility]. Pt is a care home care resident at facility, as is his . Son plans on pt returning to facility on d/c from hospital. Notified facility. Will remain available to assist as needed.
--- NOTE | 2018-12-10 15:59 | NUR ---
WOUND CONSULT: PT. WAS SEEN TODAY BY DR. GARCIA AND MYSELF. PT. IS WELL KNOWN TO THE WOUND CARE TEAM. PT. HAS A STABLE STAGE 2 PRESSURE ULCER TO HIS SACRUM. RECOMMENDATIONS: ZGUARD CREAM DAILY AND PRN. PT. AND STAFF NURSE WERE INSTRUCTED ON PLAN OF CARE.
--- NOTE | 2018-12-10 17:32 | HC ---
[facility] [address] CONSULTATION Name: LEON CLARK Room #: 241-[facility] IN M.R.#: [id number] Admission: 12/09/18 ������������������ Attend Phys: Joey Chen MD Discharge: ������������������ Date of : 34 Report #: [id number] THIS REPORT FOR: //name// CC: Joey Chen Johnna Ladan DATE OF SERVICE: 12/09/2018 REFERRAL PHYSICIAN: Dr. Chen. REASON FOR REFERRAL: Hypoxia. HISTORY OF PRESENT ILLNESS: The patient is an 83-year-old -[place]izen [place] male who was brought to the Emergency Room with dyspnea, tachycardia and febrile illness. The patient was felt to have pneumonia. A pulmonary consultation was requested. The patient has a long history of dementia. He has been residing in a longterm, [facility]. He was just admitted less than a week ago at [facility] for anorexia, malnutrition. A PEG tube was placed. The patient was doing fairly well until early this morning when he developed an episode of emesis, nausea or vomiting. He was felt to have aspirated. He is currently hypoxic, on nonrebreather mask. He appears tachypneic. PAST MEDICAL HISTORY: Notable for dementia, malnutrition with anorexia, hypertension, hyperlipidemia, dysphagia. ALLERGIES: None to medications. MEDICATIONS: List are reviewed including Flomax, Zantac, aspirin, DuoNeb, recent course of Levaquin, melatonin, diltiazem, doxazosin, Proscar, Namenda. FAMILY HISTORY: Noncontributory. SOCIAL HISTORY: No recent history of tobacco or alcohol use. Currently resides at [facility]. He has a very supportive family including 5 children and multiple siblings. MEDICAL DIRECTIVE: A daughter who is the DPOA states that he is a full code blue for now. REVIEW OF SYSTEMS: Deferred as the patient has moderate respiratory distress. [facility] [address] [place] [address] CONSULTATION Name: LEON CLARK Room #: 241-P [facility] IN ..#: [id number] Admission: 12/09/18 ������������������ Attend Phys: Joey Chen MD Discharge: ������������������ Date of : 34 Report #: [id number] PHYSICAL EXAMINATION: GENERAL: He is awake, mildly distressed, appears tachypneic. VITAL SIGNS: Temperature is 99.3 degrees Fahrenheit, pulse is 110, respiratory rate is 33, blood pressure 127/62 mmHg, saturation is 100%. HEENT: Normocephalic, atraumatic. NECK: Supple, without lymphadenopathy or thyromegaly. CHEST: Breath sounds are fair bilaterally due to poor effort, bilateral crackles. No wheezes. CARDIOVASCULAR: Normal S1, S2. No murmurs or gallop. There is no JVD. There is no carotid bruit. Pulses are 2+/4+ bilaterally. ABDOMEN: Soft, nontender. No organomegaly or masses felt. GENITOURINARY: Deferred. RECTAL: Deferred. EXTREMITIES: There is no edema, cyanosis or clubbing. MUSCULOSKELETAL: Notable for moderate muscle atrophy. LABORATORY DATA: Chest x-ray shows moderate bilateral infiltrates. Chest x-ray performed a few days earlier showed clear lung carr. Procalcitonin level is 35.8. Sodium 149, potassium 4.5, chloride 114, CO2 23, BUN is 36, creatinine is 1.7, baseline creatinine appears to be 1.1. Arterial blood gas revealed pH 7.50, CO2 is 23, O2 is 67 on 100% FiO2. WBC 14,100, hemoglobin 12.1, platelets are normal. There are 28% bands. IMPRESSION: 1. Bilateral infiltrates in this 83-year-old -[place]izen [place] male. There is recent nausea and vomiting. Aspiration pneumonia suspected. 2. Acute hypoxic respiratory failure. He is profoundly hypoxic, requiring 100% FiO2. His respiratory rate is in the 30s. We will try BiPAP, but may need to be intubated if no significant improvement over the next several hours. 3. Advanced dementia, malnutrition, cachexia. Overall look appears to be quite poor. 4. Debility and weakness due to above. 5. Hypertension. 6. Hyponatremia. 7. Medical directive as mentioned above. For now, daughter who is a DPOA desires full code blue. RECOMMENDATION: Agree with broad-spectrum antibiotics. We will continue noninvasive ventilation as tolerated. Wean O2 for saturation 90%. I am concerned given the patient's cachexia, malnutrition, weakness, he may not tolerate BiPAP too long. The patient is at high risk for requiring intubation. This was discussed in detail with the patient's family. They voiced their understanding. We also discussed that overall outlook appears to be poor given advanced age, advanced dementia, cachexia, malnutrition and weakness. They understand. [address] [address] CONSULTATION Name: [facility] Room #: 241-P [facility] IN M.R.#: [id number] Admission: 12/09/18 ������������������ Attend Phys: Joey Chen MD Discharge: ������������������ Date of : 34 Report #: [id number] Thank you for this consultation. ��������������������������������������������� <ELECTRONICALLY SIGNED> ���������������������������������������� By: Blaine Luna MD ��������������������������������������������� 12/10/18 1732 1802 0902 Blaine Luna MD /nt
--- NOTE | 2018-12-10 17:43 | NUR ---
Assumed care of Pt at 0700. Pt on bipap until early afternoon. now on 4L NC. Non verbal. no signs of distress. son at bedside throughout day. rhonci to auscultation. resp's 20-28. tachycardic, hr 110's. hypotensive but stable w/ MAP > 65. cerrato output 700cc. z guard applied to pressure ulcer - turned Q2H. severly contracted. Tmax 101.0 - rectal supp given. hypoglycemic this evening - 12.5mg of D50 given. tube feeds remain on hold per physician. good progress toward poc goals.
[2018-12-11] VITALS (64 sets, daily range): BP systolic 58–160; BP diastolic 32–88
--- NOTE | 2018-12-11 04:40 | NUR ---
PT RESTING COMFORTABLE IN BED. CONTINUES ON BIPAP 40% FIO2 SATS 96%. ST ON MONITOR. PT BP STABLE. REQUIRED A FEW DOSES OF PAIN MEDICATION THROUGHOUT SHIFT. PT REMAINS ON MAINTENANCE IVF. TOLERATING FREQUENT TURNS. PT AM LABS TO BE DRAWN AND REVIEWE.
[2018-12-11 05:46] LABS: ABSOLUTE NEUTROPHILS 13.8 thou/uL (1.4-8.2); BASOPHILS 0.1 % (0.0-2.0); HEMOGLOBIN 8.4 gm/dL (14.0-18.0); LYMPHOCYTES 4.2 % (24.0-44.0); MCH 29.5 pg (26.0-34.0); MCHC 32.2 g/dL (28.0-37.0); MCV 91.6 fL (80.0-100.0); MONOCYTES 2.6 % (1.0-8.0); PLATELET COUNT 219 thou/uL (150-400); POLYS 93.1 % (36.0-66.0); RBC 2.84 mil/uL (4.50-6.00); RDW 14.4 % (10.5-14.5); WBC 14.8 thou/uL (4.0-11.0)
[2018-12-11 05:56] LABS: CALCIUM 8.1 mg/dL (8.5-10.1); CREATININE 1.1 mg/dL (0.7-1.3); POTASSIUM 3.8 mmol/L (3.5-5.1)
[2018-12-11 10:24] LABS: BE(vivo) -1.7 mmol/L (-2 to +3); PCO2 33.1 mmHg (35.0-45.0); PO2 94.1 mmHg (80.0-100.0); pH 7.441 (7.360-7.450); sO2 97.5 % (92.0-98.0)
--- NOTE | 2018-12-11 13:22 | HC ---
[facility] [place] [address] CONSULTATION Name: KIRSTY CLARKSUKHI Room #: 241-P [facility] IN M.R.#: [id number] Admission: 12/09/18 ������������������ Attend Phys: Joey Chen MD Discharge: ������������������ Date of : 34 Report #: [id number] THIS REPORT FOR: //name// CC: Joey Oropeza [facility] DATE OF SERVICE: 12/09/2018 INFECTIOUS DISEASES CONSULTATION REASON FOR CONSULTATION: Aspiration pneumonia and sepsis. HISTORY OF PRESENT ILLNESS: The patient is an 83-year-old with advanced dementia, who was just discharged from the hospital on 12/07/2018 following placement of a feeding gastrostomy tube. He is also being treated for sacral decubitus. While at the [facility], he developed nausea and vomiting. This was yesterday and this morning, he became afebrile along with hypoxic, transported to the Emergency Room, where he had temperature of 36.5. He was on 6 liters of oxygen per nasal cannula, where typically, he is on no oxygen. He was tachypneic with a respiratory rate of 45. He was given IV fluids, placed on supplemental oxygen. Indwelling Painter catheter was placed. The patient remains encephalopathic. He does awaken, but is unable to give any details of his history. Further history was gleaned from the chart and discussed with nursing at the bedside. He has had a large amount of loose cough, which required NT suctioning by respiratory therapy. I am awaiting further evaluation of his sputum that was reportedly sent to the laboratory. Following transport to the Intensive Care Unit, his blood pressure has improved. Heart rate remains tachycardic at 110. He does arouse and is uncomfortable in appearance. REVIEW OF SYSTEMS: The patient now has an indwelling Painter catheter. He has a PEG tube. He has a peripheral IV in place. Further details unable to be obtained for the patient was demented and unable to give any history. PAST MEDICAL HISTORY: Dementia, hypertension, hyperlipidemia and dysphagia. ALLERGIES: None known. MEDICATIONS: As noted on his MAR, which have been reviewed. He was recently on Levaquin prior to his admission. Now, he is on vancomycin, Zosyn and Levaquin. FAMILY HISTORY: Noncontributory. SOCIAL HISTORY: Nonsmoker. There was a report of past alcohol use. [address] [address] CONSULTATION Name: LEON CLARK Room #: [address] [place] [address] IN M.R.#: [id number] Admission: 12/09/18 ������������������ Attend Phys: Joey Chen MD Discharge: ������������������ Date of : 34 Report #: [id number] PHYSICAL EXAMINATION: VITAL SIGNS: Temperature is 97.7, pulse 110, respiratory rate 33 and blood pressure 120/62. GENERAL: He was lethargic, although would arouse. He was tachypneic. He was elderly in appearance with reasonable skin turgor. There was an unstageable wound to his sacrum. He had no palpable adenopathy. HEENT: Eyes without scleral icterus. Mouth had a fair amount of dried mucus to his dentition. He had a loose cough. NECK: Supple, with no thyromegaly, mass or JVD. LUNGS: Coarse breath sounds posteriorly on the right, with consolidation heard in the left base. HEART: Tachycardic, regular, without murmur, gallop or rub. ABDOMEN: Soft, did not appear tender. PEG site was unremarkable, with no erythema, induration or drainage. No hepatosplenomegaly or mass. GENITOURINARY: External genitalia with scrotal edema. No lesions or rashes noted. He has an indwelling Painter catheter. RECTAL EXAMINATION: Not performed. EXTREMITIES: Without clubbing, cyanosis or edema. NEUROLOGIC: Cranial nerves were difficult to assess due to the patient's inability to cooperate. He did move all extremities. PSYCHIATRIC: Mood unable to be assessed. LABORATORY STUDIES: On 8 liters of oxygen, he had a pO2 of 67, pCO2 of 23, pH of 7.5, bicarbonate of 17 and lactate of 4.9. Sodium 149, potassium 4.9, bicarbonate of 19 and creatinine 2.0. Hemoglobin 12.1, platelet count 344,000 and white count 14.1 with 54% segs, 28% bands and 3% metamyelocytes. Procalcitonin was 35. Urinalysis had pyuria, bacteriuria and yeast. Chest x-ray showed right middle lobe and lower lobe infiltrate with left basilar changes as well. Small right effusion. IMPRESSION: 1. An 83-year-old [facility] resident with healthcare-associated aspiration pneumonia and sepsis. 2. Acute kidney injury. 3. Mixed metabolic acidosis and respiratory alkalosis. 4. Severe dementia. 5. Sacral pressure wound. 6. Urinary tract infection. PLAN: We will continue combination antibiotic coverage for nosocomial organisms. Continue fluid resuscitation, monitoring urine output. [facility] [address] [place] [address] CONSULTATION Name: LEON CLARK Room #: 434-P ADM IN M.R.#: [id number] Admission: 12/09/18 ������������������ Attend Phys: Joey Chen MD Discharge: ������������������ Date of : 34 Report #: [id number] laboratory studies including CBC and chemistry. Central venous access will be obtained. He will be monitored in the Intensive Care Unit and reassessed. ��������������������������������������������� <ELECTRONICALLY SIGNED> ���������������������������������������� By: Orion Vizcaino MD ��������������������������������������������� 12/11/18 1322 1441 0113 Orion Vizcaino MD /nt
[2018-12-11 13:29] LABS: BE(vivo) -2.4 mmol/L (-2 to +3); PCO2 36.2 mmHg (35.0-45.0); pH 7.401 (7.360-7.450)
[2018-12-11 13:30] LABS: PO2 104 mmHg (80.0-100.0)
--- NOTE | 2018-12-11 15:37 | NUR ---
PT REQUIRED INTUBATION TODAY. [facility] UPDATED.
--- NOTE | 2018-12-11 17:39 | NUR ---
WOUND FOLLOW UP: PT. WAS SEEN TODAY BY DR. GARCIA AND MYSELF. PT. WOUND IS DEGRADING RAPIDLY. TODAY PT. WOUND IS AN UNSTAGABLE PRESSURE ULCER TO HIS SACRUM. ALL PREVENTION MEASURES ARE BEING TAKEN AT THIS TIME. I SUSPECT THAT HIS WOUND WILL CONTINUE TO DEGRADE WITH HIS OVERALL HEALTH PRESENTATION. RECOMMENDATIONS: CONTINUE WITH CURRENT PLAN OF CARE. PT. AND STAFF NURSE WERE INSTRUCTED ON PLAN OF CARE.
--- NOTE | 2018-12-11 19:06 | NUR ---
Assumed care of patient at 0700. Patient on bipap at that time, minimally responsive, does not open eyes or follow commands. Does respond to painful stimuli. Down for CT abd as ordered. Discussed via phone with sister Brooke regarding declining respiratory status, code status, and family wishes. She stated she still wanted full aggressive care including ventilator if needed. Updated Dr. Luna, orders to prepare for intubation. Started on propfol and levophed. Peg tube to LIS. Monitoring blood sugars closely, had two instances of hypoglycemia today requiring amp D50. Continue to monitor.
[2018-12-12] VITALS (93 sets, daily range): BP systolic 79–170; BP diastolic 32–112
[2018-12-12 04:33] LABS: CALCIUM 7.9 mg/dL (8.5-10.1); CREATININE 1.1 mg/dL (0.7-1.3); POTASSIUM 3.2 mmol/L (3.5-5.1)
[2018-12-12 04:54] LABS: ABSOLUTE NEUTROPHILS 18.2 thou/uL (1.4-8.2); BASOPHILS 0.3 % (0.0-2.0); EOSINOPHILS 0.6 % (0.0-3.0); HEMATOCRIT 23.8 % (42.0-52.0); HEMOGLOBIN 7.7 gm/dL (14.0-18.0); LYMPHOCYTES 3.4 % (24.0-44.0); MCH 29.6 pg (26.0-34.0); MCHC 32.5 g/dL (28.0-37.0); MONOCYTES 3.1 % (1.0-8.0); PLATELET COUNT 193 thou/uL (150-400); POLYS 92.6 % (36.0-66.0); RBC 2.62 mil/uL (4.50-6.00); RDW 14.4 % (10.5-14.5); WBC 19.7 thou/uL (4.0-11.0)
--- NOTE | 2018-12-12 05:31 | NUR ---
Client remains in the ICU for Aspiration Pneumonia & Dementia. Care assumed 12/11/18 @ 1900. Client intubated & lightly sedated on Propofol gtt for vent management. Sinus Tach per monitor and previously on a Bipap until toleration was no longer available. Coarse lungs throughout and vent settin.5 ETT, 25 ATT, AC 14, TV 500, FIO2 40% Peep 5. Peg tube in placed and patent, Q6 hour accu checks w/SSI. Client has a cerrato to DD and did not have a BM during the night. Stage 2 wound to Coccyx (see wound care note/order). THANG TLP and Right AC PIV. Currently on maint fluids and Levophed for B/P support. Afibrile during the night. Please see Holographic Projection for Architecture for additional questions/concerns.
[2018-12-12 15:37] LABS: % SATURATION 12 % (20-39); IRON 9 ug/dL (65-175); TIBC 77 ug/dL (250-450)
[2018-12-12 16:09] LABS: FOLIC ACID 4.5 ng/mL (8.6-58.9)
--- NOTE | 2018-12-12 19:21 | NUR ---
PATIENT VITAL SIGNS AND ASSESSMENTS DOCUMENTED. PATIENT WAS TRANSPORTED TO [facility] WITH ASSISTANCE OF TRANSPORTER, TYPESETTING MACHINE OPERATOR/TENDER, AND RT. HE TOLERATED TRANSFER WELL. PATIENT, IN THE LATER AFTERNOON, WENT INTO SVT SUSTAINED. THIS WAS NOTED TO PRIMARY, WHO CONSULTED CARDIOLOGY. PER ORDER PATIENT WAS SWITCHED FROM LEVOPHED TO JEFRY. TITRATION FOR MAP AND HEART RATE. A SHORT BIT AGO HE DROPPED HIS HEART RATE FROM 160'S-170'S TO 60 BPM. THEN ELEVATED INTO THE LOW 100'S BPM. CARDIOLOGY ROUNDED THIS EVENING ON PATIENT AFTER THE CONVERSION TO SINUS TACHYCARDIA. INTAKE AND OUTPUT NOTED. PATIENT TRANSFERRED TO POD 2 WITHOUT DIFFICULTY. NURSE INFORMED PATIENTS SISTERS OF NEW ROOM. CRITICAL VALUES CALLED TO APPROPRIATE PHYSICIANS. DROPPING HGB NOTED BY PHYSICIANS. PLAN OF CARE IS TO CONTINUE TO MONITOR PATIENT STATUS, VITAL SIGNS, INTAKE AND OUTPUT, AND TO START NUTRITION.
--- NOTE | 2018-12-12 19:29 | NUR ---
NURSE ATTEMPTED MULTIPLE TIMES TO PLACE EITHER A NG TUBE OR AN OG TUBE WITHOUT SUCCESS. REPORT GIVEN TO CABLE RIGGER RN FOR CONTINUED ATTEMPTS. XRAY OBTAINED FOR CONFIRMATION OF PLACEMENT AND IT WAS NOT IN PLACE, NURSE ATTEMPTED TO ADVANCE IT WITHOUT SUCCESS. INFORMATION SYSTEMS SECURITY ANALYST ATTEMPTED TO PLACE ALSO WITHOUT SUCCESS.
[2018-12-13] VITALS (101 sets, daily range): BP systolic 73–218; BP diastolic 23–147
[2018-12-13 06:02] LABS: HEMATOCRIT 23.9 % (42.0-52.0); HEMOGLOBIN 7.8 gm/dL (14.0-18.0); MCH 30.4 pg (26.0-34.0); MCHC 32.5 g/dL (28.0-37.0); MCV 93.3 fL (80.0-100.0); RBC 2.57 mil/uL (4.50-6.00); RDW 15.2 % (10.5-14.5)
[2018-12-13 06:10] LABS: CREATININE 1.5 mg/dL (0.7-1.3); POTASSIUM 4.5 mmol/L (3.5-5.1)
--- NOTE | 2018-12-13 07:30 | NUR ---
ASSUMED CARE OF PT AT 1900. LEVO GTT SWITCHED TO JEFRY GTT SHORTLY BEFORE SHIFT CHANGED TO HELP CONTROL PT'S HR. PT'S RHYTHM WAS SINUS TACH, LOW 100s, FOR A FEW HOURS, AND THEN WAS SINUS RHYTHM IN THE 80-90s THE REMAINDER OF THE NIGHT. PT ON MAX DOSE OF JEFRY EARLY ON, DUE TO HYPOTENSION. PT SEEMED TO BECOME LESS RESPONSIVE, SO PROPOFOL GTT WAS TITRATED DOWN. PROPOFOL WAS LOWERED, PT'S BP RAISED. WAS ABLE TO TITRATE JEFRY GTT DOWN THIS AM, UNTIL PT STARTED TO HAVE SOME DISTRESS AND SEDATION WAS TITRATED BACK UP. JEFRY WAS BACK AT MAX DOSE BY 0630. DURING SHIFT CHANGE, PT BECAME EXTREMELY TACHY AND BP BEGAN TO DROP MORE. LEVO GTT TURNED BACK ON. PT TACHYPNEIC THROUGHOUT THE NIGHT, BUT RR SEEMED TO RISE MORE SHORTLY BEFORE SHIFT CHANGE. EARLIER ON IN THE NIGHT, PT'S URINE OUTPUT HAD DECREASED SIGNIFICANTLY. PT WAS BLADDER SCANNED, WHICH JUST SHOWED ABOUT 130 CC IN BLADDER; CATHETER WAS ALSO IRRIGATED. ATUL AVILEZ NP NOTIFIED OF THIS CHANGE AND ORDERED A 500 CC NS BOLUS. PT DID NOT HAVE MUCH OF A RESPONSE TO THIS. WHEN JEFRY GTT WAS TITRATED DOWN, URINE OUTPUT SEEMED TO SKI GUIDE, BUT WAS STILL NOT ADEQUATE. CREATININE 1.5 ON AM LABS. PT HAS SOME PITTING EDEMA, BUT DID NOT HAVE ANY SIGNIFICANT CHANGE IN AMOUNT OVERNIGHT. ASSESSMENTS AND VITALS DOCUMENTED. WILL CONTINUE TO MONITOR.
[2018-12-13 13:44] LABS: CALCIUM 7.8 mg/dL (8.5-10.1); CREATININE 1.9 mg/dL (0.7-1.3)
[2018-12-13 13:48] LABS: BE(vivo) -17.2 mmol/L (-2 to +3); HCO3 12.2 mmol/L (22.0-26.0); PCO2 41.7 mmHg (35.0-45.0); PO2 162.3 mmHg (80.0-100.0); sO2 98.4 % (92.0-98.0)
[2018-12-13 13:56] LABS: pH 7.085 (7.360-7.450)
[2018-12-13 15:35] LABS: BE(vivo) -14.7 mmol/L (-2 to +3); HCO3 14.1 mmol/L (22.0-26.0); PCO2 45.9 mmHg (35.0-45.0); PO2 136.4 mmHg (80.0-100.0); pH 7.105 (7.360-7.450); sO2 97.7 % (92.0-98.0)
--- NOTE | 2018-12-13 16:23 | NUR ---
PT IS NONRESPONSIVE FAMILY AT BEDSIDE FOR SUPPORT. ON MEDICATIONS FOR BLOOD PRESSURE SUPPORT. NSR ON THE LIAISON ENGINEER. RECIEIVNG BLOOD ORDERED. LUGNS ARE CLEAR. REMAINS ON THE VENT. ABG CALLED TO DR. TODD WITH NEW ORDERS OBTAINED. BLANKET WARMER ON TEMP 97.8 APPEARS COOL. TOLERATING TUBE FEEDING WITHOUT DIFFICULT. MARCOS TO DD WITH LITTLE OUTPUT AND PHYSICAN AWARE. RN AT BEDSIDE CONTINUING TO MONITOR PT'S STATUS IN THE INTENSIVE CARE.
[2018-12-13 17:40] LABS: BE(vivo) -14.6 mmol/L (-2 to +3); HCO3 13.9 mmol/L (22.0-26.0); PCO2 43.6 mmHg (35.0-45.0); PO2 126.5 mmHg (80.0-100.0); sO2 97.4 % (92.0-98.0)
[2018-12-13 17:42] LABS: pH 7.122 (7.360-7.450)
[2018-12-13 18:00] LABS: CALCIUM 7.8 mg/dL (8.5-10.1); CREATININE 1.9 mg/dL (0.7-1.3)
[2018-12-13 20:33] LABS: BE(vivo) -12.3 mmol/L (-2 to +3); HCO3 16.5 mmol/L (22.0-26.0); PCO2 49.9 mmHg (35.0-45.0); PO2 123.7 mmHg (80.0-100.0); sO2 97.3 % (92.0-98.0)
[2018-12-13 20:35] LABS: pH 7.137 (7.360-7.450)
[2018-12-13 20:40] LABS: HEMATOCRIT 31.2 % (42.0-52.0); MCHC 32.4 g/dL (28.0-37.0); MCV 92.8 fL (80.0-100.0); RBC 3.37 mil/uL (4.50-6.00); WBC 18.3 thou/uL (4.0-11.0)
[2018-12-13 20:44] LABS: CALCIUM 7.7 mg/dL (8.5-10.1)
[2018-12-13 20:45] LABS: HEMOGLOBIN 10.1 gm/dL (14.0-18.0)
--- NOTE | 2018-12-13 22:05 | EKG ---
[address] [place] [address] ELECTROCARDIOGRAM REPORT Name: LEON CLARK Room #: 245-P ADM IN M.R.#: [id number] ������������������ Admission: 12/09/18 ������������������ Attend Phys: Joey Chen MD Discharge: ������������������ Date of : 34 Report #: [id number] ����������������������������������������������������������������� [id number] THIS REPORT FOR: //name// [facility] Test Date: 2018-12-12 Test Time: 16:04:11 Pat Name: LEON CLARK Department: Room: [facility] Gender: M Social Media Senior Associate: BISMARK : 1935 Requested By: Lavelle Burroughs Order Number: [id number] MD: Vasiliy Burks Measurements Intervals Minto Rate: 170 P: 0 NH: QRS: -30 QRSD: 89 T: 44 QT: 293 QTc: 493 Interpretive Statements Supraventricular tachycardia Left axis deviation Borderline low voltage, extremity leads RSR' in V1 or V2, right VCD or RVH Compared to ECG 12/09/2018 08:16:40 Right ventricular hypertrophy now present RSR' in V1 or V2 now present Atrial abnormality no longer present Prolonged QT interval no longer present Electronically Signed On 12-13-2018 22:05:19 APPLICATION SPEC by Vasiliy Burks [email or web address] ��������������������������������������������� <ELECTRONICALLY SIGNED> ���������������������������������������� By: Vasiliy Burks MD ��������������������������������������������� 12/13/18 2205 1604 1604 Vasiliy Burks MD /EPI
[2018-12-14] VITALS (94 sets, daily range): BP systolic 105–159; BP diastolic 51–71
[2018-12-14 05:32] LABS: BE(vivo) -16.5 mmol/L (-2 to +3); HCO3 13.1 mmol/L (22.0-26.0); PCO2 46.6 mmHg (35.0-45.0); PO2 135.1 mmHg (80.0-100.0); sO2 97.5 % (92.0-98.0)
[2018-12-14 05:33] LABS: pH 7.067 (7.360-7.450)
[2018-12-14 05:39] LABS: HEMATOCRIT 32.5 % (42.0-52.0); HEMOGLOBIN 10.3 gm/dL (14.0-18.0); MCH 30.3 pg (26.0-34.0); MCHC 31.8 g/dL (28.0-37.0); MCV 95.3 fL (80.0-100.0); PLATELET COUNT 188 thou/uL (150-400); RBC 3.41 mil/uL (4.50-6.00); RDW 15.9 % (10.5-14.5); WBC 18.2 thou/uL (4.0-11.0)
[2018-12-14 06:05] LABS: ABSOLUTE NEUTROPHILS 16.6 thou/uL (1.4-8.2)
[2018-12-14 06:06] LABS: ANISOCYTOSIS 1+; LARGE PLATELETS RARE; PLATELET ESTIMATE NORMAL; POLYCHROMASIA 1+
[2018-12-14 06:07] LABS: ALBUMIN 1.3 g/dL (3.4-5.0); CALCIUM 7.3 mg/dL (8.5-10.1); CREATININE 2.5 mg/dL (0.7-1.3); MAGNESIUM 2.2 mg/dL (1.8-2.4); TOTAL BILIRUBIN 3.5 mg/dL (<0.1-1.0)
[2018-12-14 06:08] LABS: POTASSIUM 5.4 mmol/L (3.5-5.1)
--- NOTE | 2018-12-14 07:30 | NUR ---
ASSUMED CARE OF PT AT 1900. RENAL CONSULTED AND DR. QUEZADA ROUNDED ON PT. AROUND 1999, PT'S HR INCREASED TO THE 140s/150s. CARDIOLOGY NOTIFIED; DR. SEXTON ORDERED 150 MG AMIO IV PUSH X1. PT'S HR LOWERED BACK TO THE 80s; HR ELEVATED ONE OTHER TIME OVERNIGHT, FOR LESS THAN A MINUTE. HYPOTENSIVE AT THE TIME OF ELEVATED HR, VASO ADDED TO JEFRY AND LEVO. BP WAS IMPROVED THIS AM AND LEVO WAS TITRATED DOWN. PT TACHYPNEIC THROUGHOUT THE NIGHT. TUBE FEEDING PUT ON HOLD DUE TO EXTREMELY HIGH RESIDUALS AND POSSIBILITY OF PT ASPIRATING. PT HAS HAD A RAPID DECLINE AND IS NOT PROGRESSING TOWARDS GOALS. TALKED TO DAUGHTER HILARY LAST NIGHT AND UPDATED HER ON PT'S CONDITION. SHE SAID SHE WILL BE IN TODAY TO TALK TO PHYSICIANS. ASSESSMENTS AND VITALS DOCUMENTED. WILL CONTINUE TO MONITOR.
--- NOTE | 2018-12-14 11:25 | HC ---
[facility] [place] [address] CONSULTATION Name: LOEN CLARK Room #: [facility] IN M.R.#: [id number] Admission: 12/09/18 ������������������ Attend Phys: Joey Chen MD Discharge: ������������������ Date of : 34 Report #: [id number] THIS REPORT FOR: //name// CC: Joey Oropeza [facility] DATE OF SERVICE: 12/13/2018 REASON FOR CONSULTATION: Decreased urine output and increased creatinine and metabolic acidosis. HISTORY OF PRESENT ILLNESS: This is a very unfortunate 83-year-old gentleman with severe and advanced dementia from [facility] presented here to this hospital late last month with a picture of severe advanced and advancing dementia, nonverbal and unable to follow even simple commands or anything in his environment. He had gotten to the point where he was not able to eat or drink, became volume depleted and hypernatremic and presented with a serum sodium of 163 and creatinine of 1.8. There was an abnormal urinalysis, but the urine culture was negative. He was treated with IV fluids, hospitalized for 3 days, discharged home and even at that point was severely weak and disabled and it was felt by the staff that he would be unable to feed himself or take care of himself in anyway even in the extended care facility. He was in the facility for a week or two, was readmitted due to these same failing cognitive attributes and had a PEG tube placed and was admitted for couple of days, then discharged, but 2 days later readmitted with severe diffuse pneumonia, nausea, vomiting and sepsis. He had the development of severe and progressive bilateral pulmonary infiltrates, requiring intubation, worsening septic shock requiring increasing doses of pressors and eventually the failure of urine output over the last 24 hours with worsening metabolic acidosis, increasing pressor requirements. PAST MEDICAL HISTORY: Aside from the dementia, he actually had lived a fairly healthy life, some hypertension, may be some trouble swallowing. MEDICATIONS: At the facility included Flomax, ranitidine 81 mg of aspirin, diltiazem 300 mg daily, simvastatin 10 mg daily, doxazosin 8 mg daily, Exelon patch, Proscar and Namenda. SOCIAL HISTORY: Apparently was never a smoker. Did use some alcohol when he was younger. FAMILY HISTORY: Really is unknown. REVIEW OF SYSTEMS: Not at any point along the way been able to be taken as the patient basically has been in a semi-vegetative state over the last month or so. [facility] [address] [place] [address] CONSULTATION Name: LEON CLARK Room #: 245-P [facility] IN [facility]#: [id number] Admission: 12/09/18 ������������������ Attend Phys: Joey Chen MD Discharge: ������������������ Date of : 34 Report #: [id number] PHYSICAL EXAMINATION: GENERAL: The patient is seen in ICU. He is intubated with endotracheal tube on the ventilator on high doses of pressors. His pulse is 150. SKIN: Warm and dry. He has a sacral decubitus ulcer with dressing. SKELETAL: Shows him to be well developed and no amputations. HEENT: Extraocular movements cannot be tested. The pupils are barely reactive. NECK: Little bit stiff. CHEST: Shows coarse rhonchi and rales. HEART: Extremely rapid at 150, but mostly regular. ABDOMEN: Soft. PEG tube in place and bowel sounds are decreased, but present. EXTREMITIES: Show 1+ dependent edema. NEUROLOGIC: Again shows him to be completely unresponsive. LABORATORY DATA: Hemoglobin is 7.8, white count 17,000. Most recent differential showed him to have 22-28 bands, platelets 195. Sodium 140, potassium 5, chloride 106, bicarbonate 18, creatinine 1.9, BUN 36. Most recent lactic acid was 5.72 and has been elevated throughout the hospital stay except for a couple of readings on 12/11/2017. ASSESSMENT AND PLAN: 1. Acute renal failure. The patient has acute renal failure in the setting of septic shock with hemodynamic collapse on high doses of pressors with a pulse of 150, really would not in any way be a safe candidate for even very mild or minimal intervention with CRRT if indicated. The patient's advanced dementia, progressive deterioration, worsening pneumonia despite maximal therapy over the last 4 days would indicate that survival is highly unlikely. In any event, we will certainly try to temporize with bicarbonate, try to neutralize his acidosis, possibly improve his hemodynamics and then possibly have a discussion with the family considering whether at that point if he stabilized, CRRT may be feasible, certainly not at this point. 2. Advanced dementia. 3. Respiratory failure with ventilator dependence. 4. Severe advancing diffuse pneumonitis. ��������������������������������������������� <ELECTRONICALLY SIGNED> ���������������������������������������� By: Orville Rivear MD ��������������������������������������������� 12/14/18 1125 28 2044 Orville Rivera MD /nt
--- NOTE | 2018-12-14 15:24 | NUR ---
CONDITION HAS WORSENED. REMAINS INTUBATED, IS ON 3 PRESSORS FOR BP SUPPORT. HOSPITALIST SPOKE WITH PT'S DTR TODAY ABOUT CONDITION/PROGNOSIS. SHE IS WAITING FOR FAMILY TO ARRIVE FROM OUT OF TOWN. PT IS LTC RESIDENT AT [facility] IN ADMISSIONS UPDATED.
--- NOTE | 2018-12-14 16:33 | NUR ---
WOUND FOLLOW UP: PT. WAS SEEN TODAY BY DR. GARCIA AND MYSELF. PT. WOUND IS NON-CHANGING TODAY FROM [facility]. RECOMMENDATIONS: CONTINUE WITH CURRENT PLAN OF CARE. PT. AND STAFF NURSE WERE INSTRUCTED ON PLAN OF CARE.
--- NOTE | 2018-12-14 18:57 | NUR ---
SUMMARY: ON THE VENT LIGHTLY SEDATED, NO RESPONSE THROUGHOUT THE DAY. VITALS STABLE ON VASO, LEVO, JEFRY, PROPOFOL AND BICARB GTTS. PEG TUBE CLAMPED DUE TO HIGH RESIDUALS LAST NIGHT. MARCOS WITH SCANT AMOUNT OF URINE. DAUGHTER TALKED WITH DR. BARRIENTOS AND DR. QUEZADA AND WILL CONFERENCE WITH REST OF THE FAMILY TO COME UP WITH A PLAN ON HOW TO PROCEDE. WILL CONTINUE TO MONITOR.
[2018-12-15] VITALS (92 sets, daily range): BP systolic 115–143; BP diastolic 36–71
--- NOTE | 2018-12-15 07:45 | NUR ---
ASSUMED CARE OF PT AT 1900. AT THAT TIME, PT ON JEFRY, LEVO, AND VASO GTTS FOR BP SUPPORT. BY MN, LEVO AND VASO GTTS OFF. CONTINUED TO TITRATE JEFRY GTT DOWN SLOWLY; REMAINS ON JEFRY GTT. RR DOWN TO LOW 20s, PT'S APPEARS TO HAVE MORE EASE OF BREATHING. PROPOFOL GTT CONTINUED FOR SEDATION. WHEN ASSESSED AT MN, PT HAD DEVELOPED A PERICARDIAL RUB. TF STILL ON HOLD, PT HAD LITTLE TO NO RESIDUALS. ONLY MEDICATION WAS GIVEN THROUGH PEG TUBE. PT'S FAMILY TO DECIDE HOW AGGRESSIVE TO BE WITH PT'S CARE MOVING FORWARD. WILL CONTINUE TO MONITOR CLOSELY.
--- NOTE | 2018-12-15 10:33 | NUR ---
PT. [place] [facility] [place] UPDATE TO FACILITY AND SPOKE WITH ANASTASIA IN ADM, SHE RECEIVED UPDATE. DCP TO FOLLOW.
--- NOTE | 2018-12-15 16:32 | NUR ---
NO NEW CHANGES TO REPORT RESP DENNY - VSS REMAIN STABLE THROUGHOUT SHIFT WHILE TITRATING DOWN ON JEFRY - NO FAMILY AT BEDSIDE SO FAR TODAY - DR. DIAMOND QUEZADA AND DR. CHACON HAVE ALL ROUNDED TODAY - PT REMAINS ANURIC AND ARE AWARE
[2018-12-16] VITALS (23 sets, daily range): BP systolic 96–143; BP diastolic 40–65
--- NOTE | 2018-12-16 06:18 | NUR ---
END OF SHIFT SUMMARY: No change in pt status. Pt remains non-responsive. Monitor sinus rhythm. MAP remains > 60 without vasopressors. On 20 mcg/kg/min Propofol for vent management. Sat > 95% on FiO2 40%. Still has significant pericardial rub. Anuric and not a candidate for dialysis per nephrology team. Remains edematous, fingertips dark purple, no changes in skin integrity. Remains NPO due to inability to tolerate tube feedings. Suctioning minimal secretions from ETT and oral cavity.
--- NOTE | 2018-12-16 16:40 | NUR ---
PT IS NONRESPONSIVE. FOLLOWS NO COMANDS. LUNGS ARE COARSE. SINUS RHYTHM ON THE REPAIR WELDER. DR. WILKERSON SPOKE WITH FAMILY AND CHANGED TO A NO CODE STATUS TODAY. HYPOACTIVE BOWEL SOUNDS. ANURIC. PEG CLAMPED NOT TOLERATING FEEDS. LIGHT SEDATION ON REPOSITION PT FOR COMFORT. 3-4PLUS GENERAL EDEMA NOTED. OG TO SUCTION AND APPEARS RAMIREZ TUBE FEEDINGS IN COLOR. WILL CONTINUE TO ASSESS AND MONITOR PER NURSING.
--- NOTE | 2018-12-16 16:50 | NUR ---
PT IS ALERT AND ORIENTED X4 FORGETFULL AT TIMES. LUNGS ARE CLEAR TO DIMINISHED. NSR ON THE VIDEOTAPE EDITOR. DIETARY PUT HIM ON A HONEY THICK DIET PUREE. PT HAS A MARCOS WITH LITTLE URINE OUTPUT. COMPLAINS ON LEG PAIN NOTIFIED DR. TOMAS FOR SOME PAIN MEDS. RATES A 5 OUT OF 10 ON LEG PAIN. REAMINS ON LEVO DRIP AT 4MCG. PT WAS COLD IN TEMP SO BEAR HUGGER ON PT AND SOME WARM BLANKETS. AT BEDSIDE TODAY FOR SUPPORT. WILL CONTINUE TO ASSESS AND MONITOR PER NURSING.
[2018-12-17] VITALS (23 sets, daily range): BP systolic 113–135; BP diastolic 48–63
[2018-12-17 05:13] LABS: BE(vivo) 1.1 mmol/L (-2 to +3); HCO3 26.6 mmol/L (22.0-26.0); PCO2 46.4 mmHg (35.0-45.0); PO2 124.9 mmHg (80.0-100.0); pH 7.376 (7.360-7.450); sO2 98.4 % (92.0-98.0)
[2018-12-17 05:54] LABS: RBC 3.08 mil/uL (4.50-6.00); RDW 15.4 % (10.5-14.5)
[2018-12-17 05:55] LABS: HEMOGLOBIN 9.4 gm/dL (14.0-18.0); MCH 30.6 pg (26.0-34.0); MCHC 33.6 g/dL (28.0-37.0); MCV 90.9 fL (80.0-100.0)
[2018-12-17 06:12] LABS: ALBUMIN 0.8 g/dL (3.4-5.0); CALCIUM 6.4 mg/dL (8.5-10.1); PHOSPHORUS 8.4 mg/dL (2.5-4.9); POTASSIUM 4.7 mmol/L (3.5-5.1)
[2018-12-17 06:23] LABS: CREATININE 4.1 mg/dL (0.7-1.3)
--- NOTE | 2018-12-17 06:28 | NUR ---
PT REMAINS ON VENT FIO2 50% SATS 94% CONTINUES ON PROPOFOL GTT FOR COMFORT. PT SR ON MONITOR. AM LABS REVIEWED THUS FAR. PT NEURO UNCHANGED.
--- NOTE | 2018-12-17 11:03 | NUR ---
WOUND FOLLOW UP: PT. WAS SEEN TODAY BY DR. LOTT AND MYSELF. NO CLINICAL CHANGES TO NOTE WITH PT. WOUND. FAMILY HAS MADE PT. A DNR AND ARE CONSIDERING COMFORT CRE AT THIS TIME. RECOMMENDATIONS: CONTINUE WITH CURRENT PLAN OF CARE. PT. AND STAFF NURS WERE INSTRUCTED ON PLAN OF CARE.
--- NOTE | 2018-12-17 14:14 | NUR ---
FOLLOWING FOR DC PLANNING. PT WAS MADE DNR 12/[address] FIELDS SPOKE WITH PT'S DTR. DR. CONTE SPOKE WITH PT'S DTR THIS AM ABOUT COMFORT CARE AND SHE AND FAMILY ARE MAKING DECISION. UPDATE TO ANASTASIA IN ADMISSIONS AT [facility] WHERE PT RESIDES IN LTC.
--- NOTE | 2018-12-17 17:37 | NUR ---
PT IS NONRESPONSIVE. PTS FAMILY AT BEDSIDE TODAY FOR SUPPORT. LUNGS ARE COARSE REMAINS ON THE VENT. BLOOD PRESSURE STABLE. NSR ON THE ROOFING APPLICATOR. NO URINE OUTPUT NOTED. REMAINS ON PROPOFOL FOR LIGHT SEDATION. AND TOLERATING WELL. TURN Q2 HOURS WITH CARE. GENERALIZED EDMA NOTED . ORAL CARE DONE. NO CODE STATUS AT THIS TIME. WHICH IS WHAT THE FAMILY WANTS AT THIS TIME. WILL CONTINUE TO ASSESS AND MONITOR PER NURSING.
[2018-12-18] VITALS (16 sets, daily range): BP systolic 96–134; BP diastolic 42–66
--- NOTE | 2018-12-18 03:35 | NUR ---
PT IS STILL INTUBATED/SEDATED/UNRESPONSIVE. ASSESSMENT CHARTED. PT IS NO CODE AND FAMILY IS STILL DECIDING TO PLACE PT ON PALLATIVE CARE. PT'S URINE OUTPUT IS MINIMAL WITH PHYSICANS AWARE. FREQUENT TURNS FOR COMFORT. CONTINUE WITH PLAN OF CARE
[2018-12-18 05:49] LABS: HEMOGLOBIN 9.2 gm/dL (14.0-18.0)
[2018-12-18 05:51] LABS: HEMATOCRIT 27.2 % (42.0-52.0); MCHC 33.9 g/dL (28.0-37.0); MCV 91.6 fL (80.0-100.0); PLATELET COUNT 91 thou/uL (150-400); RBC 2.97 mil/uL (4.50-6.00); RDW 16.1 % (10.5-14.5)
[2018-12-18 05:58] LABS: CALCIUM 6.4 mg/dL (8.5-10.1); CREATININE 4.4 mg/dL (0.7-1.3); POTASSIUM 4.9 mmol/L (3.5-5.1)
[2018-12-18 06:11] LABS: WBC 61.6 thou/uL (4.0-11.0)
[2018-12-18 08:40] LABS: ABSOLUTE NEUTROPHILS 50.4 thou/uL (1.4-8.2); CORRECTED WBC 53.6 thou/uL (4.0-11.0); METAMYELOCYTES 4 %; NUCLEATED RBCS 15 /100WBC; PLATELET ESTIMATE DECREASED
[2018-12-18 08:41] LABS: LARGE PLATELETS FEW
--- NOTE | 2018-12-18 14:32 | NUR ---
PT REMAINS ON VENT, POOR PROGNOSIS PER PHYSICIANS NOTES. DR. CONTE SPOKE IWTH PT'S DTR SARAH AGAIN THIS AM ABOUT CARE DECISION. PT IS DNR, BUT FAMILY NOT ABLE TO MAKE DECISION ON PALLIATIVE EXTUBATION AND COMFORT CARE. UPDATE TO ANASTASIA AT [facility] WHERE PT AND SPOUSE RESIDE IN LTC.
--- NOTE | 2018-12-18 15:25 | NUR ---
WOUND FOLLOW UP: PT. WAS SEEN TODAY BY DR. GARCIA AND MYSELF. PT. WOUNDS HAVE NOT CHANGED BUT, PT. IS CLINICALLY DETERIORATING. RECOMMENDATIONS: CONTINUE WITH CURRENT PLAN OF CARE. PT. AND STAFF NURSE WERE INSTRUCTED ON PLAN OF CARE.
--- NOTE | 2018-12-18 17:05 | NUR ---
ASSUMED CARE OF PT AT 0700 THIS SHIFT. PT HAS BEEN SEDATED AND UNRESPOSIVE THIS SHIFT, NO APPARENT PAIN. PT HAD A VERY LOW TEMPERATURE THIS MORNING, BEAR HUGGER WAS PLACED. PT HAS MADE NO URINE THIS SHIFT, PHYSICIANS AND FAMILY ARE AWARE. PT'S FINGERS AND TOES HAVE NECROSIS DESPITE STRONG PULSES. PT IS VERY EDEMATOUS, MAINTAINS HIGH RESIDUALS, NO BM. PT HAS NOT HAD VISITORS THIS SHIFT, EDUCATION WAS PROVIDED. PLAN OF CARE IS TO CONTINUE TO MONITOR PT CLOSELY AT THIS TIME AND FOR PHYSICIANS TO HAVE MEETING WITH FAMILY TOMORROW MORNING.
--- NOTE | 2018-12-21 08:19 | HC ---
[facility] [place] [address] CONSULTATION Name: LEON CLARK Room #: [facility] [place] .R.#: [id number] Admission: 12/09/18 ������������������ Attend Phys: Joey Chen MD Discharge: 12/18/18 ������������������ Date of : 33 Report #: [id number] THIS REPORT FOR: //name// CC: Joey Chen Johnna Pickering DATE OF SERVICE: 12/10/2018 CHIEF COMPLAINT: Sacral pressure ulceration. HISTORY OF PRESENT ILLNESS: This is an 83-year-old male patient with whom I am familiar from previous hospitalization who has been admitted to the Intensive Care Unit. He has a history of advanced dementia and is nonverbal. He lives in the Memory Care Unit at [facility] he was noted to be hypoxic with fever and vomiting as well as had hypotension. He is admitted with probable sepsis and pneumonia. He is noted to have a sacral ulceration. I have been asked to see him in this regard. The patient can provide no information about himself. ALLERGIES: None. MEDICATIONS: Include Pepcid, Flomax, aspirin, Tylenol, Proscar, Exelon patch. PAST MEDICAL HISTORY: Positive for dementia, hypertension, hyperlipidemia, dysphagia. SOCIAL HISTORY: The patient has a history of past alcohol use, no tobacco use. FAMILY HISTORY: Unknown. REVIEW OF SYSTEMS: Not obtainable due to the patient's condition. PHYSICAL EXAMINATION: VITAL SIGNS: At this time include blood pressure 104/48, pulse rate of 119, respiratory rate of 29, pulse oximetry is 98% on high flow cannula. GENERAL: This is a chronically ill-appearing and very thin-appearing male patient who appears to be having some respiratory difficulty. HEAD: Normocephalic. NECK: Supple. LUNGS: Diminished. HEART: Tachycardic. ABDOMEN: Soft. SKIN: The sacral region demonstrates what appears to be a stage 2 sacral pressure ulcer, there is a small area of unstageable ulceration surrounding this. It does appear to remain superficial. NEUROLOGIC: The patient is mostly unresponsive. [facility] [address] [place] [address] CONSULTATION Name: [facility] Room #: [facility] [place] ..#: [id number] Admission: 12/09/18 ������������������ Attend Phys: Joey Chen MD Discharge: 12/18/18 ������������������ Date of : 33 Report #: [id number] LABORATORY DATA: Include sodium 143, potassium 4.1, chloride 109, CO2 22, BUN 37, creatinine 1.4, glucose 137. White blood cell count of 21.1 with hemoglobin 9.3. CLINICAL IMPRESSION: 1. Stage 2 and unstageable pressure ulcer of the sacral region. 2. Acute respiratory failure. 3. Hypernatremia. 4. Acute mental status changes. RECOMMENDATIONS: At this point in time, we will place zinc oxide cream to the sacral region b.i.d. and as needed. We will place him on a low air loss mattress with q. 2 hour turning and positioning. He will need PRAFO boots for pressure prophylaxis and aggressive nutritional support. Recommend continuing of current medications and current supportive measures. I appreciate being asked to see him in consultation. ��������������������������������������������� <ELECTRONICALLY SIGNED> ���������������������������������������� By: Brendan Obrien MD ��������������������������������������������� 12/21/18 0819 1150 0021 Brendan Obrien MD /nt
== END 2018-12-18 17:46 | DRG 870 ==
LOC: ER 08:01 → EROBS 08:48 → ICU 08:48
PROVIDERS: Emergency Medicine; Hospitalist; Internal Medicine; Internal Medicine Nephrology; Internal Medicine Pulmonary Disease; Pediatrics; ADMIT Hospitalist
DX: A41.9 Sepsis, unspecified organism (principal); J69.0 Pneumonitis due to inhalation of food and vomit; J96.01 Acute respiratory failure with hypoxia; G93.41 Metabolic encephalopathy; R65.21 Severe sepsis with septic shock; N17.0 Acute kidney failure with tubular necrosis; K72.00 Acute and subacute hepatic failure without coma; N39.0 Urinary tract infection, site not specified; E87.0 Hyperosmolality and hypernatremia; E46 Unspecified protein-calorie malnutrition; I47.1 Supraventricular tachycardia; Z99.11 Dependence on respirator [ventilator] status; F03.90 Unspecified dementia, unspecified severity, without behavioral disturbance, psychotic disturbance, mood disturbance, and anxiety; E78.5 Hyperlipidemia, unspecified; R33.9 Retention of urine, unspecified; R62.51 Failure to thrive (child); E86.0 Dehydration; L89.152 Pressure ulcer of sacral region, stage 2; D64.9 Anemia, unspecified; N18.9 Chronic kidney disease, unspecified; E53.8 Deficiency of other specified B group vitamins; I12.9 Hypertensive chronic kidney disease with stage 1 through stage 4 chronic kidney disease, or unspecified chronic kidney disease; Z66 Do not resuscitate; D72.823 Leukemoid reaction; Z68.29 Body mass index [BMI] 29.0-29.9, adult
CPT/HCPCS: 10078; 27000